=== PATIENT | female | born 1985 | race Caucasian/White ===

== ENCOUNTER 2016-09-08 12:25 | Inpatient (IN) | payer OTHER ==
[~2016-09-08] VITALS: Ht 160 cm; Wt 72.1 kg
[2016-09-08 12:58] LABS: Mean Corpuscular Hemoglobin 28.2 pg (27.0-35.0); Mean Corpuscular Volume 85.9 fL (81-100)
[2016-09-08] MEDS: Lactated Ringer's 1,000 ML IV SCH ×2 (14:04→22:37)
[2016-09-08] MEDS ORDERED: Sodium Chloride LOK Flush 10 mL Syringe IVFLUSH PRN (14:05)
[2016-09-08] MEDS ORDERED: Oxytocin 10 Unit/mL Inj IM PRN (14:05)
[2016-09-08] MEDS ORDERED: Oxytocin 30 Units/500 mL LR 30 UNITS in IV Premix 1 EACH IV PRN (14:05)
[2016-09-08] MEDS ORDERED: Carboprost 250 mCg/mL Inj IM PRN (14:05)
[2016-09-08] MEDS ORDERED: Hemorrhage Kit, Post Partum XX ONE (14:05)
[2016-09-08] MEDS ORDERED: Methylergonovine 0.2 mg/mL Inj IM PRN (14:05)
[2016-09-08] MEDS ORDERED: diphenhydrAMINE 50 mg Capsule PO PRN (14:05)
[2016-09-08] MEDS ORDERED: hydrALAZINE 20 mg/mL Inj IVPUSH PRN (14:05)
[2016-09-08] MEDS ORDERED: Labetalol 5 mg/mL 4 mL Inj IV PRN (14:05)
--- NOTE | 2016-09-08 14:17 | PCM.HPOB ---
Subjective Date of Service: September 08, 2016 Referring Provider: Admitting Physician: Pratik Urbano MD Primary Care Physician: Pratik Urbano MD Attending Physician: Pratik Urbano MD Chief Complaint Gestational Hypertension History of Present History of Present Illness Marivel is a 31-year-old 2 para 1-0 -0-1 at 38 weeks and 3 days with an estimated due date of 09/19/2016 which is based on a six-week ultrasound. She presented to clinic today for a routine visit and had a mildly elevated blood pressure of 124/96. She was sent to triage for further evaluation and she continued to have elevated blood pressures. Problem list: 1. History of LEEP in 2000 2. Asthma 3. Low mumps titer (Will need MMR booster ) 4. History of marginal placenta previa early in this but has since resolved 5. Her last ultrasound on 08/09/2016 showed an at the 94th percentile. OB History: (2), Para (1), Term (1), Pre-term, (0), Living (1) Obstetrical Complications: Gestational Hypertension Past Medical History Obstetrical History: History of a normal vaginal delivery Genetic Screening/Counseling Genetic Screening/Counseling: Negative Review of Systems [facility] Allergy Coded Allergies: No Known Allergies (Unverified , 01/25/16) Exam Constitutional: Well-developed, Well-nourished HEENT: Atraumatic, PERRLA Lungs: Clear to Auscultation Heart: Exam Unremarkable Abdomen: Gravid Additional Information Cervix: 0/50/-3, posterior, soft Vertex presentation Labs/Diagnostics Maternal Blood Type: O (Positive) Hx Rho(D) Immune Globulin: No Antibody Screen: Negative Group B Strep Results: Negative Previous Infant with GBS: No Rubella: Non-Immune Lab History: Positive for: Hx Chicken Pox Additional Information Laboratory Tests Test 09/08/16 12:37 09/08/16 12:52 09/08/16 12:53 Urine Random Creatinine 139mg/dL (16-392) Urine Random Total Protein 27mg/dL (0-15) Urine Protein/Creatinine Ratio 0.19 (0-200) White Blood Count 9.1th/mm3 (3.8-10.1) Red Blood Count 3.97mil/mm3 (3.90-5.20) Hemoglobin 11.2g/dL (12.0-15.6) Hematocrit 34.1% (35.0-46.0) Mean Corpuscular Volume 85.9fL (81-100) Mean Corpuscular Hemoglobin 28.2pg (27.0-35.0) Mean Corpuscular Hemoglobin Concent 32.8% (32.0-37.0) Red Cell Distribution Width 12.6% (12.3-15.4) Platelet Count 233bil/L (150-400) Hematology Comments Blood Urea Nitrogen 10mg/dL (6-20) Creatinine 0.39mg/dL (0.57-1.00) Uric Acid 4.0mg/dL (2.6-7.2) Aspartate Amino Transf (AST/SGOT) 17U/L (0-50) Alanine Aminotransferase (ALT/SGPT) 11U/L (0-32) OB Intrapartum Assessment/Plan Problems: (1) Gestational HTN Plan: For induction of labor with Cytotec for gestational hypertension. I reviewed the risks of induction with the patient which included, but not limited to, increased risk for delivery. Consent was signed in the office. Status: Acute ICD Code: O13.9 Pratik Urbano MD September 08, 2016 14:17
[2016-09-08 14:37] LABS: Mean Corpuscular Volume 85.4 fL (81-100)
[2016-09-08] MEDS: Misoprostol 25 mCg/0.25 Tablet VAGINAL SCH (14:43)
[2016-09-08] MEDS: Ondansetron 2 mg/mL 2 mL Inj IVPUSH PRN ×2 (22:04→23:41)
[2016-09-09] MEDS: Misoprostol 25 mCg/0.25 Tablet VAGINAL SCH (02:05)
[2016-09-09] MEDS: fentaNYL-PF 50 mCg/mL 2 mL Inj IVPUSH PRN ×2 (02:30→07:15)
[2016-09-09] MEDS ORDERED: Oxytocin 30 Units/500 mL LR Premix IV SCH (05:05)
[2016-09-09] MEDS: Lactated Ringer's 1,000 ML IV SCH ×3 (05:57→14:36)
[2016-09-09 07:58] LABS: APPEARANCE,URINE HAZY (CLEAR,HAZY); COLOR,URINE YELLOW (YELLOW); OCCULT BLOOD,URINE NEGATIVE (NEGATIVE); PH,URINE 6.5 (5.0-8.0); UROBILINOGEN,URINE NORMAL (NORMAL)
[2016-09-09] MEDS ORDERED: Lactated Ringer's 500 ML IV ONE (08:48)
[2016-09-09] MEDS ORDERED: Atropine 1 mg/10 mL (Code) Syringe IVPUSH PRN (08:50)
[2016-09-09] MEDS ORDERED: fentaNYL 2 mCg/mL-Bupiv 0.125% 100 ML EPIDURAL SCH (08:50)
[2016-09-09] MEDS ORDERED: EPHEDrine Sulfate 50 mg/mL Inj IVPUSH PRN (08:50)
--- NOTE | 2016-09-09 08:53 | PCM.HPANE ---
Patient Data Date of Service: September 09, 2016 Surgeon Admitting Provider:Pratik Urbano MD Attending Provider:Pratik Urbano MD Primary Care Physician:Pratik Urbano MD Other Provider: Reason for Visit NST IND Ht/WT & BMI Height (Centimeters): 160 Weight (Kilograms): 72.1 Body Mass Index Allergies Coded Allergies: No Known Allergies (Unverified , 01/25/16) Past Anesthesia History Anesthesia History: Denies:: Fam Anesthesia Reaction, Fam Malignant Hypertherm Diabetes History Hx Diabetes?: No Medications Hypertension Medication: No Home Meds Incl Beta Daniel: No History History of ENT Problems?: No HEENT History: Denies:: Abnormal Airway Denture Type: None Teeth Condition: Within Normal Limits Hx of Heart Problems?: No Cardiovascular History: Positive for:: Hypertension (gestational) Denies:: Congestive Heart Failure Hx of Respiratory Problem?: No Respiratory History: Positive for:: Asthma Denies:: Tuberculosis Hx Neurologic Problems?: No Neurological History: Denies:: CVA Hx of GI Problems?: No Hx of Problems?: No Female Hx: Positive for:: Currently Hx Musculoskeletal Problems?: No Hx of Psycho/Social Problems?: No Hx Surgeries?: No Hx Any Other Health Problems?: No Hx Diabetes: No Hx Alcohol Use: NoHx Substance Use: No Smoking Status: Never Smoker Have You Smoked inLast 12 mo: No Stop/Bang Risk Assessment Category Category 1A: Patient has history of documented sleep apnea, and HAS NOT received any narcotic, sedative or anesthesia administration during this stay. Category 1B: Patient has history of documented sleep apnea, and HAS received any narcotic , sedative or anesthesia administration during this stay Category 2: Patient has SUSPECTED Obstructive Sleep Apnea, and HAS received any narcotic , sedative or anesthesia administration during this stay. Category 3: Patient has SUSPECTED Obstructive Sleep Apnea and HAS NOT received narcotic, sedative or anesthesia administration during this stay. Category 4: Outpatient in Procedural Areas with known sleep apnea or who screen positive for High Risk via the STOP/BANG questionnaire. Exam Exam General Appearance: Moderate Distress (labor pain with contractions) HEENT/AIRWAY: MP 2 Lungs: Clear to Auscultation Heart: Regular Rate/Rhythm Meds/Labs/Diagnostics Admission Meds Current Medications Lactated Ringer's (Lr) 1,000 ml @ 125 mls/hr Q8H IV Last administered on 5/5/ 17at 05:57; Start 09/08/16 at 14:04 Misoprostol (Cytotec) 25 mcg Q4H VAGINAL Last administered on 09/08/16 14:43; Start 09/08/16 at 14:05 Dinoprostone 10 mg 10 mg ONCE ONCE VAGINAL Last administered on 09/08/16 20:52 ; Start 09/08/16 at 21:00; Stop 09/08/16 at 21:01; Status DC Oxytocin/Lactated Ringer's/Premix (Pitocin 30 Units/500 mL LR/ IV Premix) 500 ml @ 0 mls/hr Q0M IV Last administered on 09/09/16 05:58; Start 09/09/16 at 05: 05 Labs Test 09/08/16 12:37 09/08/16 12:52 09/08/16 12:53 09/08/16 14:20 Urine Color Yellow (YELLOW) Urine Appearance Hazy (CLEAR,HAZY) Urine pH 6.5 (5.0-8.0) Urine Specific [place] 1.015 (1.003-1.035) Urine Protein Negativemg/dL (NEG,TRACE) Urine Glucose (UA) Negativemg/dL (NEGATIVE) Urine Ketones Negativemg/dL (NEGATIVE) Urine Occult Blood Negative (NEGATIVE) Urine Nitrite Negative (NEGATIVE) Urine Bilirubin Negative (NEGATIVE) Urine Urobilinogen Normalmg/dL (NORMAL) Urine Leukocyte Esterase Negative (NEGATIVE) Urine RBC 0-2/hpf (0-2) Urine WBC 0-5/hpf (0-5) Urine Epithelial Cells Occasional/hpf (NONE-MOD) Urine Crystals None seen (NONE SEEN) Urine Bacteria Few/hpf (NONE-FEW) Urine Hyaline Casts None/lpf (NONE) Urine Granular Casts None seen (NONE SEEN) Urine Waxy Casts None seen (NONE SEEN) Urine Red Blood Cell Casts None seen (NONE SEEN) Urine White Blood Cell Casts None seen (NONE SEEN) Urine Mucus None seen (None Seen) Urine Trichomonas None seen (NONE SEEN) Urine Yeast None (NONE SEEN) Urinalysis Comment None Urine Random Creatinine 139mg/dL (16-392) Urine Random Total Protein 27mg/dL (0-15) Urine Protein/Creatinine Ratio 0.19 (0-200) Hematology Comments Blood Urea Nitrogen 10mg/dL (6-20) Creatinine 0.39mg/dL (0.57-1.00) Uric Acid 4.0mg/dL (2.6-7.2) Aspartate Amino Transf (AST/SGOT) 17U/L (0-50) Alanine Aminotransferase (ALT/SGPT) 11U/L (0-32) White Blood Count 10.1th/mm3 (3.8-10.1) Red Blood Count 4.04mil/mm3 (3.90-5.20) Hemoglobin 11.3g/dL (12.0-15.6) Hematocrit 34.5% (35.0-46.0) Mean Corpuscular Volume 85.4fL (81-100) Mean Corpuscular Hemoglobin 28.0pg (27.0-35.0) Mean Corpuscular Hemoglobin Concent 32.8% (32.0-37.0) Red Cell Distribution Width 12.7% (12.3-15.4) Platelet Count 234bil/L (150-400) Plan Impression Patient chart reviewed, patient interviewed and anesthestic plan with risks, benefits, and alternatives discussed, and informed consent obtained. NPO per Anesth. Guidelines: Yes ASA Physical Status: ASA2 Mod Systemic Disease Anesthetic Plan: Epidural Bene/Risks/Altern/Consents: Yes HP Complete Prior to Induction: Yes Hima Alegria MD September 09, 2016 08:53
[2016-09-09] MEDS ORDERED: Oxytocin 10 Unit/mL Inj IM PRN (19:45)
[2016-09-09] MEDS ORDERED: Oxytocin 30 Units/500 mL LR 30 UNITS in IV Premix 1 EACH IV PRN (19:45)
[2016-09-09] MEDS ORDERED: LANOlin HPA 7 Gm Ointment TOPICAL PRN (19:45)
[2016-09-09] MEDS ORDERED: oxyCODONE-Acetamin 5-325 mg Tablet PO PRN (19:45)
[2016-09-09] MEDS ORDERED: Methylergonovine 0.2 mg/mL Inj IM PRN (19:45)
[2016-09-09] MEDS ORDERED: Witch Hazel-Glycerin Pads TOPICAL PRN (19:45)
[2016-09-09] MEDS ORDERED: Hemorrhage Kit, Post Partum XX ONE (19:45)
[2016-09-09] MEDS ORDERED: Benzocaine (Dermoplast) 20% 60 Gm Spray TOPICAL PRN (19:45)
[2016-09-09] MEDS ORDERED: Lactated Ringer's 1,000 ML IV SCH (19:45)
[2016-09-09] MEDS ORDERED: Carboprost 250 mCg/mL Inj IM PRN (19:45)
--- NOTE | 2016-09-09 21:39 | OP ---
[address] [address] OPERATIVE REPORT PATIENT: DIANA LEHMAN : 1985 MR#: [id number] ADMIT: 09/08/2016 JOB ID: [id number] DATE OF SURGERY: 09/09/2016 SURGEON: Radha Alvarado MD. PREOPERATIVE DIAGNOSIS(ES): POSTOPERATIVE DIAGNOSIS(ES): DELIVERY NOTE: A 31-year-old female, 2, para 1, now at 38 weeks . She was admitted for induction of labor for gestational hypertension. This morning, when I started my shift, she was on Pitocin. At that time, her cervix was 1-2, long, posterior, soft, -3. Decision was made to do double balloon catheter for further ripening. The catheter was inserted and stayed for 6 hours. After 6 hours, she was noticed to be 4-5 cm dilated, 50% effaced, and -3. At that time, Pitocin started. Two hours after that she had good contraction and we did AROM. There was clear fluid. After that, her labor progressing nicely. Her heart tracing was category 1. In the morning before the Arriaga catheter was placed, she got epidural. Her pain is well controlled. patient had more pain and it was noticed she is fully dilated. She is instructed to push. With pushing, there was significant descent of head and the was delivered at and ZOYA position. Shoulder and chest delivered without difficulty. The infant was placed on mother's chest. After delivery, delayed cord clamp was performed after pulsation disappeared. Then regular cord blood collected. Then, the placenta delivered spontaneously completely and examined with three-vessel cord. After delivery of placenta, the uterus was massaged and hemostasis confirmed. At this time, the perineum was examined and noticed there is 2nd degree perineum laceration and a small perirectal laceration. A 2nd degree laceration on the perineum was repaired with 2-0 Vicryl continuously and one [id number] stitch was placed on the periurethral area. The patient tolerated the procedure well. All instrument, needles, laps and gauzes counted correct twice. The EBL during the delivery was about 200 cc. The score, weight was not available at dictation. [facility]
[2016-09-10 06:54] LABS: Mean Corpuscular Hemoglobin 28.9 pg (27.0-35.0); Mean Corpuscular Volume 85.5 fL (81-100)
--- NOTE | 2016-09-10 07:18 | PCM.DIOB ---
Obstetrical Disch Instruction Dates of Hospitalization Date of Hospital Admission September 08, 2016 at 13:48 Providers Admitting Physician: Pratik Urbano MD Primary Care Physician: Pratik Urbano MD Attending Physician: Pratik Urbano MD Discharge Diagnosis Problems: (1) Gestational HTN Status: Acute ICD Code: O13.9 Diet Discharge Diet: No restrictions Activity Discharge Activity-General: Pelvic Rest for 6 weeks, Be up and about, Activity as pain allows, Activity as energy allows, No lifting >15 pounds for 2 weeks Dressing and Incisional Care Hygiene: May shower, NO bathtub, hot tub or whirlpool, Perineal care, Sitz bath , Dermoplast spray Additional Instructions Discharge Instructions Call your provider for any questions or concerns. Including any of the following : * A change in odor from your episiotomy/stitches area or vaginal flow. (pg 52) * Temperature higher than 100.4 degrees (pg 54) * Heavy bright red bleeding (pg 51) * Your breast develops red painful areas or red streaks (pg 37) * Baby Blues (pg 58) and Depression (pg 59) For more detailed information refer to pages in Baby New Follow Up Plan Follow-up appointment: Weeks (6) Call your provider for: Fever or Chills, Shortness of breath, Heavy vaginal bleeding Vilma Christensen MD September 10, 2016 07:18
[2016-09-10] MEDS ORDERED: IBUP800T28 PO (07:19)
[2016-09-10] MEDS ORDERED: DOCU-41 PO (07:19)
[2016-09-10] MEDS ORDERED: Measles-Mumps-Rubella Vaccine 0.5 mL Inj SUBQ ONE (07:35)
--- NOTE | 2016-09-10 08:29 | DIS ---
[address] [address] DISCHARGE SUMMARY PATIENT: DIANA LEHMAN : 1985 MR#: [id number] ADMIT: 09/08/2016 JOB ID: [id number] DIS: 09/10/2016 ADMISSION DIAGNOSES: 1. G 2, P 1-0-0-1 female at 38 + 3 weeks gestation for an induction of labor due to gestational hypertension. 2. History of loop electrosurgical excision procedure in the remote past. 3. Mumps nonimmune. 4. History of marginal placenta previa that was resolved by the end of . 5. Large for gestational age with an EFW in the 94th percentile. DISCHARGE DIAGNOSES: 1. G 2, P 1-0-0-1 female at 38 + 3 weeks gestation for an induction of labor due to gestational hypertension. S/P spontaneous vaginal delivery 2. History of loop electrosurgical excision procedure in the remote past. 3. Mumps nonimmune. 4. History of marginal placenta previa that was resolved by the end of . 5. Large for gestational age with an EFW in the 94th percentile. PROCEDURES PERFORMED: Spontaneous vaginal delivery of a live-born male , born on September [birth year], 2018, at 1917 hours weighing 7 pounds 15 ounces, with Apgars of 8 at one minute and 9 at five minutes. REASON FOR ADMISSION AND HOSPITAL COURSE: This is a 31-year-old G 2, P 2-0-0-1 female presented to the [facility] for an induction of labor due to gestational hypertension at 38 + 3 weeks gestation with an EDC of September 19, 2016 dated by six week ultrasound. She had been seen in clinic with elevated blood pressures. They were persistent upon evaluation in triage, and for this reason, an induction was started. Her was complicated by a history of LEEP procedure in the year 1999, well-controlled asthma, low mumps titer with need for MMR , history of a resolved marginal previa and large for gestational age with last EFW in the 94th percentile. She presented to our clinic on the afternoon of September 08 at which point an induction was started with Cytotec as she was closed, thick and high. On the morning of September 09, a cervical ripening balloon was placed and was then placed for 6 hours and when it fell out, she was noted to be 5 cm dilated, at which point in time, Pitocin was started. Artificial rupture of membranes was then completed and she progressed to complete following this. Please see the operative report for full details. She did go on to deliver a male without any difficulty. By day #1, her pain was well controlled. She was tolerating a regular diet. She was voiding and ambulating well on her own and she was breast feeding without any difficulty. It was at this point in time that she was deemed stable for discharge. Her blood pressures which had been slightly elevated at admission were stable throughout her time on Labor and Delivery and range 120s-130s/70s-80s. All of her laboratory work was within normal limits. Laboratory data showed a blood type of O positive, antibody screen negative, rubella nonimmune, and low mumps titer. Varicella immune. Hep B surface antigen negative, RPR nonreactive, HIV negative. By the time of admission to labor and delivery, her white count was 10.1, her hemoglobin was 11.3 and her platelet count was 234. Her protein creatinine ratio was 0.19. Her AST and ALT were within normal limits. By day #1, her white count was noted to be 18. Her hemoglobin had dropped to 9.8, and her platelets were 213. PHYSICAL EXAMINATION ON THE DAY OF DISCHARGE: On the day of discharge, her blood pressure was 129/75. Her heart rate is 95, respiratory rate is 18. Her temperature is 98.8. In general she is awake, alert and oriented. She is in no acute distress. She is her in the bed. INSTRUCTIONS AT DISCHARGE: The patient was advised to remain on pelvic rest for six weeks including no tampons, douching or intercourse. She was asked to call with any signs or symptoms of infection including fever greater than 100.5 degrees, severe pain, malodorous vaginal discharge or bleeding greater than a pad per hour. MEDICATIONS AT DISCHARGE: Included: Ibuprofen 800 mg p.o. q.8 hours p.r.n. pain as well as Colace 100 mg p.o. b.i.d. Her blood pressures were stable after delivery but signs and symptoms of severe preeclampsia were also reviewed including headaches not relieved with Tylenol, vision changes or right upper quadrant pain that is worsening following delivery. She is O positive, rubella nonimmune and mumps nonimmune and so an MMR vaccine was ordered prior to discharge. All questions and concerns of the patient were answered. She was discharged home on day #1. [place]
[2016-09-10 12:16] VITALS: BP 118/77; PULSE 86; RESP 16
== END 2016-09-10 14:40 | disposition home or self-care (01) | DRG 560 ==
LOC: FBCO 12:25 → UNDOADMIN 13:48 → FBC 13:48 → UNDODISIN 09-10 13:32
PROVIDERS: ADMIT Obstetrics & Gynecology; ATTEND Obstetrics & Gynecology
PROC: 3E033VJ Introduction of Other Hormone into Peripheral Vein, Percutaneous Approach (ICD-10-PCS; 2016-09-08)
PROC: 10E0XZZ Delivery of Products of Conception, External Approach (ICD-10-PCS; principal; 2016-09-09)
PROC: 0KQM0ZZ Repair Perineum Muscle, Open Approach (ICD-10-PCS; 2016-09-09)
PROC: 10907ZC Drainage of Amniotic Fluid, Therapeutic from Products of Conception, Via Natural or Artificial Opening (ICD-10-PCS; 2016-09-09)
DX: O13.4 Gestational [pregnancy-induced] hypertension without significant proteinuria, complicating childbirth (principal); O70.1 Second degree perineal laceration during delivery; Z3A.38 38 weeks gestation of pregnancy; Z37.0 Single live birth